=== PATIENT | female | born 1985 | race Caucasian/White ===

== ENCOUNTER 2019-06-17 08:01 | Day surgery (SDC) | payer BC ==
[~2019-06-17 08:01] MED LIST: Bupivacaine 0.5% 30 ML SDV ONE; Clindamycin Phosphate in D5W 600 MG in Premix Bag 1 BAG IV ONE; Lactated Ringers 1,000 ML IV SCH; Lidocaine 1% 50 ML MDV ONE; Sodium Chloride 0.9% 10 ML SDV IV PRN; Sodium Chloride 0.9% 10 ML Syringe FLUSH PRN; Sodium Chloride 0.9% 2.5 ML Syringe FLUSH PRN
[2019-06-17] MEDS ORDERED: Midazolam 1 MG/ML 2 ML SDV ONE (08:24)
--- NOTE | 2019-06-17 08:26 | PCM.PREANE ---
Preanesthetic Assessment - Anesthesia/Transfusion/Family Hx Anesthesia History: Prior Anesthesia Without Reaction Other Type of Anesthesia Reaction Comment: Denies any known problem with anesthesia in past,2 U platelet b/r delivery Family History of Anesthesia Reaction: No Transfusion History: No Prior Transfusion(s) Intubation History: Unknown - Review of Systems General: No Symptoms Pulmonary: No Symptoms Cardiovascular: No Symptoms Gastrointestinal: No Symptoms Neurological: No Symptoms Other: Reports: None - Physical Assessment Height: 5 ft 3 in Weight: 82.1 kg ASA Class: 2 Mental Status: Alert & Oriented x3 Airway Class: Mallampati = 2 Dentition: Reports: Normal Dentition Thyro-Mental Finger Breadths: 3 Mouth Opening Finger Breadths: 2 ROM/Head Extension: Full Lungs: Clear to Auscultation, Normal Respiratory Effort Cardiovascular: Regular Rate, Regular Rhythm - Allergies Allergies/Adverse Reactions: Allergies Allergy/AdvReac Type Severity Reaction Status Date / Time ibuprofen Allergy Nausea Verified 06/14/19 12:36 - Blood Blood Available: No - Anesthesia Plan Pre-Op Medication Ordered: None - Acknowledgements Anesthesia Type Planned: MAC Pt an Appropriate Candidate for the Planned Anesthesia: Yes Alternatives and Risks of Anesthesia Discussed w Pt/Guardian: Yes Pt/Guardian Understands and Agrees with Anesthesia Plan: Yes PreAnesthesia Questionnaire HEENT History: Reports: None Cardiovascular History: Reports: Other (See Below) Other Cardiovascular History: hypertensive during x2- no medications Respiratory History: Reports: None Gastrointestinal History: Reports: Other (See Below) Other Gastrointestinal History: some heartburn with Genitourinary History: Reports: None 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: Musculoskeletal History: Reports: Fracture, Other (See Below) Other Musculoskeletal History: hx of fx ankle- no hardware, MRSA cultured from neck lesion Neurological History: Reports: None Psychiatric History: Reports: None Endocrine/Metabolic History: Reports: Obesity/BMI 30+ Hematologic History: Reports: Other (See Below) Other Hematologic History: hx of Platelet infusion Immunologic History: Reports: None Oncologic (Cancer) History: Reports: None Dermatologic History: Reports: None - Past Surgical History Female Surgical History: Reports: Section (x2), Tubal Ligation - SUBSTANCE USE Smoking Status *Q: Never Smoker Recreational Drug Use History: No - HOME MEDS Home Medications: Home Meds Acetaminophen [Tylenol] 325 mg PO ASDIRECTED PRN 06/14/19 [History] Multivitamin [Daily Multiple Vitamin] 1 tab PO DAILY 06/14/19 [History] - CURRENT (IN HOUSE) MEDS Current Meds: Current Medications Lactated Ringer's (Ringers, Lactated) 1,000 mls @ 125 mls/hr IV ASDIRECTED CHANDLER Sodium Chloride (Saline Flush) 10 ml FLUSH ASDIRECTED PRN PRN Reason: Keep Vein Open Sodium Chloride (Saline Flush) 2.5 ml FLUSH ASDIRECTED PRN PRN Reason: Keep Vein Open Sodium Chloride (Normal Saline) 10 ml IV ASDIRECTED PRN PRN Reason: IV Use Discontinued Medications Bupivacaine HCl (Marcaine 0.5%) Confirm Administered Dose 30 ml .ROUTE .STK-MED ONE Stop: 06/17/19 07:17 Clindamycin Phosphate 600 mg/ (Premix) 50 mls @ 100 mls/hr IV ONETIME ONE Stop: 06/14/19 13:00 Lidocaine HCl (Xylocaine 1%) Confirm Administered Dose 50 ml .ROUTE .STK-MED ONE Stop: 06/17/19 07:17
[2019-06-17] MEDS ORDERED: Propofol 200 MG/20 ML SDV ONE (08:30)
[2019-06-17] MEDS ORDERED: Clindamycin Phosphate in D5W 600 MG in Premix Bag 1 BAG IV ONE ×2 (08:50)
--- NOTE | 2019-06-17 10:17 | PCM.OPNOTE ---
- General Post-Op/Procedure Note Date of Surgery/Procedure: 06/17/19 Operative Procedure(s): Excision left neck skin lesion Findings: 2.2 x 1 x 1 cm ellipse of skin removed. Skin lesion is 1 cm in size Pre Op Diagnosis: Left neck skin lesion Post-Op Diagnosis: same Anesthesia Technique: Local, MAC Primary Surgeon: Antonia Flower Fluid Replacement, Intraop: 500 EBL in mLs: 2 Condition: Good
--- NOTE | 2019-06-17 10:21 | PCM.POSTAN ---
POST ANESTHESIA ASSESSMENT - MENTAL STATUS Mental Status: Alert, Oriented - VITAL SIGNS Vital Signs: Last Vital Signs Temp 36.4 C 06/17/19 09:45 Pulse 64 06/17/19 10:11 Resp 16 06/17/19 10:11 BP 124/77 06/17/19 10:11 Pulse Ox 100 06/17/19 10:11 - RESPIRATORY Respiratory Status: Respiratory Rate WNL, Airway Patent, O2 Saturation Stable - CARDIOVASCULAR CV Status: Pulse Rate WNL, Blood Pressure Stable - GASTROINTESTINAL GI Status: No Symptoms - PAIN Pain Score: 0 - POST OP HYDRATION Hydration Status: Adequate & Stable - OBSERVATIONS Free Text/Narrative:: no anesthesia problems
--- NOTE | 2019-06-17 10:58 | PCM48HPAN ---
Post Anesthesia Note - EVALUATION WITHIN 48HRS OF ANESTHETIC Vital Signs in Normal Range: Yes Patient Participated in Evaluation: Yes Respiratory Function Stable: Yes Airway Patent: Yes Cardiovascular Function Stable: Yes Hydration Status Stable: Yes Pain Control Satisfactory: Yes Nausea and Vomiting Control Satisfactory: Yes Mental Status Recovered: Yes Vital Signs: Last Vital Signs Temp 36.4 C 06/17/19 09:45 Pulse 64 06/17/19 10:11 Resp 16 06/17/19 10:11 BP 124/77 06/17/19 10:11 Pulse Ox 100 06/17/19 10:11 - COMMENTS/OBSERVATIONS Free Text/Narrative:: no anesthesia problems
[2019-06-17 13:32] VITALS: BP 128/79; PULSE 68
--- NOTE | 2019-06-17 15:11 | OR ---
SURGEON: ANTONIA FLOWER MD DATE OF PROCEDURE: 06/17/2019 PREOPERATIVE DIAGNOSIS: Left neck skin lesion. POSTOPERATIVE DIAGNOSIS: Left neck skin lesion. PROCEDURE PERFORMED: Excision of left neck skin lesion. PRIMARY SURGEON: Antonia Flower MD. ANESTHESIA: MAC, local. FLUIDS: 500 mL crystalloid. ESTIMATED BLOOD LOSS: 2 mL. FINDINGS: 1 cm skin lesion on the left posterior neck/back. 2.2 x 1 x 1 cm ellipse of skin including the skin lesion was excised sharply. COMPLICATIONS: None. INDICATIONS: The patient is a 33-year-old female who presents with a nonhealing lesion on her left posterior neck. The decision was made to excise this and close the wound. I explained the procedure, expected perioperative course, and risks including bleeding, infection, or damage to surrounding structures. The patient verbalized understanding and wishes to proceed. PROCEDURE IN DETAIL: The patient was brought to the OR and placed on the OR table in a right lateral decubitus position. A time-out was completed verifying the patient's name, age, date of , allergies, and procedure to be performed. Monitored anesthesia care was induced. All bony prominences were appropriately padded and the patient was secured to the bed. The left posterior neck and upper back were prepped and draped in usual standard fashion. I first measured the skin lesion. It measured 1 cm in diameter and was slightly red and raised. I anesthetized the area with a mixture of 0.5% Marcaine plain and 1% lidocaine plain. Using a 15 blade, I made an elliptical incision around the skin lesion along the skin lines. Cautery was used to dissect down to the level of subcutaneous fat. I then undermined the lesion and removed it from its surrounding structures. It was measured on the back table and found to be 2.2 cm long, 1 cm wide and 1 cm deep. It was sent to Pathology labeled as left neck skin lesion. The wound was irrigated with normal saline and hemostasis was achieved with electrocautery. Given the location of the skin lesion and the possibility of it being infected, I closed the wound loosely with interrupted 3-0 Ethilon sutures. Sterile dressings were applied. All counts were complete and correct at the end of the case. The patient was awoke and taken to the PACU in stable condition. NABILA / JOHN /[id number]
== END 2019-06-17 10:50 | disposition home or self-care (01) ==
LOC: MW.SDS 08:01
PROVIDERS: ATTEND Surgery
DX: L90.5 Scar conditions and fibrosis of skin (principal); L08.9 Local infection of the skin and subcutaneous tissue, unspecified; A49.02 Methicillin resistant Staphylococcus aureus infection, unspecified site
CPT/HCPCS: 11423; 81025; J2001; J2250; J2704; J3490; J7120; S0077